=== PATIENT | female | born 1990 | race Caucasian/White ===

== ENCOUNTER 2017-05-18 09:48 | Inpatient (IN) | payer BC, OTHER ==
[2017-05-18] MEDS ORDERED: Phenaphthazine-PH Test Paper VI ONE (10:15)
[2017-05-18 10:34] VITALS: BMI 29.2
[2017-05-18 11:20] LABS: BASO % 0.5 % (0.0-2.0); EOS % 0.2 % (0.0-4.0); HEMATOCRIT 37.1 % (34.0-47.0); LYMPH # 1.5 K/uL (1.0-4.3); LYMPH % 20.8 % (20.0-40.0); MEAN CELL VOLUME 83.2 fl (81.0-99.0); MEAN CORPUSCULAR HEMOGLOBIN 28.3 pg (27.0-31.0); MEAN PLATELET VOLUME 9.3 fl (7.2-11.7); MONO # 0.6 K/uL (0.0-0.8); MONO % 8.7 % (0.0-10.0); NEUT # 5.1 K/uL (1.8-7.0); NEUT % 69.8 % (50.0-75.0); NRBC % 0.2 % (0.0-0.0); RED CELL DISTRIBUTION WIDTH 14.3 % (11.5-14.5); WHITE BLOOD COUNT 7.3 K/uL (4.8-10.8)
[2017-05-18] MEDS ORDERED: Lactated Ringer's 1,000 ML IV SCH (12:00)
[2017-05-18] MEDS: Lactated Ringer's 1,000 ML IV SCH ×2 (12:05→19:04)
--- NOTE | 2017-05-18 12:08 | OBHP ---
Datetime: 05/18/2017 10:30 IP Adm Impression: Term, intrauterine IP Admit Plan: Observation/Evaluation Admit Comment, IP Provider: CHIEF COMPLAINT: CTX HPI: 27 yo at 38.6 wks GA with EDC by us (12/30/2016) /lmp(08/19/2016) ...+: FM, CTX; -: ROM, VB last U/S: 04/26/2017 GBS: negative per patient, received via phone call from office PNC: Dr. 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 Lungs: clear to auscultation bilaterally, no wheezing Abdomen: nontender, gravid CVA: negative Lower extremities: negative for pitting edema SSE/PELVIC EXN: Negative for pooling of fluid; Nitrazine and ferning negative; no vaginal bleed or lesions MONITOR (normal) Variablity: moderate: 6-25 bpm ACC: 15x15 DECC: none FHR: 140 ASSESSMENT: 27 yo IUP at 38.6 wks with h/o in 2016 case d/w Dr. Mary Beth Gray, PGY1 OB Hospitalist Addendum: Pt seen and examined by me. Agree w/ above. 27 yo at 38+6 wks c/ painful ctxns since 2 am, LOF at 7 am, reports a streak of blood, reports movement. On exam , pt appeared in pain during ctxns, Spec: mucus, neg pool, neg nitrazine, neg fern, VE: /-2 w/ BB OW at 10:30 am. Pt desires epidural. Pt admitted to Labor _ Delivery. Will start fluid for epidura l. (ES) Pelvic Type - PN: Adequate Extremities - PN: Normal Abdomen - PN: Normal Back - PN: Normal Breast - PN: Not Done Lungs - PN: Normal Heart - PN: Normal Thyroid - PN: Not Done Neurologic - PN: Normal HEENT - PN: Normal General - PN: Normal FHR - Baseline A Provider: 140 Membranes, Provider: Intact Pool Provider: Negative Nitrazine Provider: Negative Ferning Provider: Negative EGA AdmitDate IP: 38.6 Vital Signs Provider: Reviewed; Within Normal Limits IP Chief Complaint: Uterine contractions; Suspected ruptured membranes NICHD Variability Prov Fetus A: Moderate 6-25bpm NICHD Accel Fetus A IP Provider: 15X15 FHR Category Provider Fetus A: Category I (Annotations: Data stored by CPN on behalf of user) NICHD Decel Fetus A IP Provider: None Dilatation, Provider: 3 Effacement, Provider: 80 Station, Provider: -2 Genitourinary Exam: Normal DTRs - PN: Not Done
--- NOTE | 2017-05-18 12:22 | OBADHP ---
Datetime: 05/18/2017 12:16 Admit Comment, IP Provider: CHIEF COMPLAINT: CTX HPI: 27 yo at 38.6 wks GA with EDC by us (12/30/2016) /lmp(08/19/2016) ...+: FM, CTX; -: ROM, VB last U/S: 04/26/2017 GBS: negative per patient, received via phone call from office PNC: Dr. 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 Lungs: clear to auscultation bilaterally, no wheezing Abdomen: nontender, gravid CVA: negative Lower extremities: negative for pitting edema SSE/PELVIC EXN: Negative for pooling of fluid; Nitrazine and ferning negative; no vaginal bleed or lesions MONITOR (normal) Variablity: moderate: 6-25 bpm ACC: 15x15 DECC: none FHR: 140 ASSESSMENT: 27 yo IUP at 38.6 wks with h/o in 2016 case d/w Dr. Mary Beth Gray, PGY1 OB Hospitalist Addendum: Pt seen and examined by me. Agree w/ above. 27 yo at 38+6 wks c/ painful ctxns since 2 am, LOF at 7 am, reports a streak of blood, reports movement. All oth er systems reviewed and negative. On exam, pt appeared in pain during ctxns, Spec: mucus, neg pool, neg nitrazine, neg fern, VE: 3/80/-2 w/ BBOW at 10:30 am. Pt desires epidural. Pt admitted to Labor _ Delivery. Will start fluid for epidural. (ES) Extremities - PN: Normal Abdomen - PN: Normal Back - PN: Normal Lungs - PN: Normal Heart - PN: Normal Neurologic - PN: Normal General - PN: Normal FHR - Baseline A Provider: 130s Membranes, Provider: Intact Contraction Comments Provider: irregular Vital Signs Provider: Reviewed IP Chief Complaint: Uterine contractions NICHD Variability Prov Fetus A: Moderate 6-25bpm NICHD Accel Fetus A IP Provider: 15X15 FHR Category Provider Fetus A: Category I NICHD Decel Fetus A IP Provider: None Dilatation, Provider: 3 Effacement, Provider: 80 Station, Provider: -2 Genitourinary Exam: Normal EGA AdmitDate IP: 38.6 IP Adm Impression: Term, intrauterine IP Admit Plan: Initiate labor protocol Datetime: 05/18/2017 10:30 Pelvic Type - PN: Adequate Breast - PN: Not Done Thyroid - PN: Not Done HEENT - PN: Normal Pool Provider: Negative Nitrazine Provider: Negative Ferning Provider: Negative DTRs - PN: Not Done
[2017-05-18] MEDS ORDERED: Fentanyl/Bupivacaine HCl 250 ML EPI ONE (12:46)
[2017-05-18 14:07] VITALS: RESP 18
[2017-05-18] MEDS ORDERED: Oxytocin 30 UNITS in Sodium Chloride 0.9% 500 ML IV ONE (15:21)
[2017-05-18] MEDS ORDERED: Oxycodone/Acetaminophen 5/325 mg Tab PO PRN ×3 (20:18→21:05)
--- NOTE | 2017-05-18 20:37 | OBDS ---
DELIVERY PERSONNEL Delivery Doctor: Hernando Clinton MD Instrument Repair Specialist: Yousif Carmen Anesthesiologist: Yash Resident: Christos Izaguirre MATERNAL INFORMATION Delivery Anesthesia: Epidural Medications in Delivery: Pitocin Estimated Blood Loss (ml): 100 Placenta Cultured: No Maternal Complications: None Provider Comments: Pt progressed to complete and pushed to deliver a viable female infant through cl ear fluid w/ terminal meconium at 19:59. Apgars 8 and 9. Wt 3510 gms, 7#11.8. Infant placed on mot her's abdomen. Cord clamped and cut. Cord blood collected. Placenta delivered spontaneously intact w/ a 3vc at 20:03. Second degree tear repaired w/ 3-0v. Rectum intact. Pt and baby tolerated proce dure well. EBL 100mL LABOR SUMMARY EDC: 05/26/2017 00:00 No. Babies in Womb: 1 Attempted: No Labor Anesthesia: Epidural LABOR INFORMATION Reason for Induction: Not Applicable Onset of Labor: 05/18/2017 02:00 Complete Dilatation: 05/18/2017 19:30 Oxytocin: N/A Group B Beta Strep: Done, Result Unknown Antibiotics # of Doses: 0 Antibiotics Time of Last Dose: n/a Steroids Given: None Reason Steroids Not Administered: Not Applicable MEMBRANES Membranes Rupture Method: Artificial Rupture of Membranes: 05/18/2017 14:38 Length of Rupture (hrs): 5.35 Amniotic Fluid Color: Clear Amniotic Fluid Amount: Moderate Amniotic Fluid Odor: Normal STAGES OF LABOR Stage 1 hrs: 17 Stage 1 min: 30 Stage 2 hrs: 0 Stage 2 min: 29 Stage 3 hrs: 0 Stage 3 min: 4 Total Time in Labor hrs: 18 Total Time in Labor min: 3 VAGINAL DELIVERY Episiotomy: None Laceration Extension: Second Degree Laceration Type: Perineal; Vaginal Laceration Repair: Yes Initial Vag Sponge Count: 15 Final Vag Sponge Count: 15 Initial Vag Sharps Count: 2 Final Vag Sharps Count: 2 Sponge Count Correct: Yes Sharps Count Correct: Yes Count Comment: count correct BABY A INFORMATION Infant Delivery Date/Time: 05/18/2017 19:59 Method of Delivery: Vaginal Born in Route : No : N/A Forceps: N/A Vacuum Extraction: N/A Shoulder Dystocia : No SHOULDER DYSTOCIA BABY A Infant Delivery Date/Time: 05/18/2017 19:59 PRESENTATION/POSITION BABY A Presentation: Cephalic Cephalic Presentation: Vertex PLACENTA INFORMATION BABY A Placenta Delivery Time : 05/18/2017 20:03 Placenta Method of Delivery: Spontaneous Placenta Status: Delivered SCORES BABY A Heart Rate 1 min: >100 bpm Resp Effort 1 min: Slow, Irregular Reflex Irritability 1 min: Cough or Sneeze or Pulls Away Muscle Tone 1 min: Active Motion Color 1 min: Body [place], Extremities Blue Resuscitation Effort 1 min: Tactile Stimulation SCORE 1 MIN: 8 Heart Rate 5 min: >100 bpm Resp Effort 5 min: Good Cry Reflex Irritability 5 min: Cough or Sneeze or Pulls Away Muscle Tone 5 min: Active Motion Color 5 min: Body [place], Extremities Blue SCORE 5 MIN: 9 INFORMATION BABY A Gestational Age at Delivery: 38.6 Gestational Status: Term Infant Outcome : Liveborn Condition : Stable Infant Sex: Female IDENTIFICATION/MEDS BABY A ID Band Number: [id number] ID Band Location: Left Leg; Left Arm WEIGHT/LENGTH BABY A Birthweight (gms): 3510 Infant Weight (lb): 7 Infant Weight (oz): 12 CORD INFORMATION BABY A No. Cord Vessels: 3 Nuchal Cord : N/A Nuchal Cord Other: n/a True Knot: n/a Cord pH Baby Arterial: n/a Cord pH Baby Venous: n/a Cord Blood Taken: Yes Banking/Donate Info: n/a Infant Suction: Mouth; Nose ASSESSMENT BABY A Complications: Other Complications Other: terminal mec Physical Findings at Delivery: Within Normal Limits Respirations: Appears Normal Product Sales Representative/ALS Called : No Care By: Dr Narinder Dodd Transferred To: Remains with Mother
[2017-05-18] MEDS ORDERED: Benzocaine/Menthol SPRAY TOP PRN (22:06)
[2017-05-19 07:01] LABS: BASO % 0.3 % (0.0-2.0); EOS % 0.3 % (0.0-4.0); HEMATOCRIT 34.6 % (34.0-47.0); LYMPH # 1.5 K/uL (1.0-4.3); LYMPH % 15.5 % (20.0-40.0); MEAN CELL VOLUME 84.7 fl (81.0-99.0); MEAN CORPUSCULAR HEMOGLOBIN 27.5 pg (27.0-31.0); MEAN CORPUSCULAR HGB CONC 32.4 g/dL (33.0-37.0); MEAN PLATELET VOLUME 8.7 fl (7.2-11.7); MONO # 0.9 K/uL (0.0-0.8); MONO % 9.1 % (0.0-10.0); NEUT % 74.8 % (50.0-75.0); RED CELL DISTRIBUTION WIDTH 14.5 % (11.5-14.5); WHITE BLOOD COUNT 9.4 K/uL (4.8-10.8)
[2017-05-19] MEDS: Oxycodone/Acetaminophen 5/325 mg Tab PO PRN (20:22)
[2017-05-20] MEDS: Oxycodone/Acetaminophen 5/325 mg Tab PO PRN ×2 (00:44→08:08)
--- NOTE | 2017-05-20 02:24 | OBPPN ---
Datetime: 05/19/2017 06:22 PP Pain Prov: Within normal limits PP Nausea Prov: Denies PP Flatus Prov: No PP BM Prov: No PP Heart Prov: Normal PP Lungs Prov: Normal PP Abdomen/Uterus Prov: Normal PP Lochia Prov: Normal PP CVA Tenderness Prov: Normal PP Extremities Prov: Normal PP Progress Prov: Normal PP Impression Prov: Normal progression PP Plan Prov: Continue present management PP Progress Note Prov: PPD #1 27 y/o now seen and examined at bedside this morning. Pt had an uneventful overnight. Rep orts pain is controlled with pain medications. Voiding freely w/ tinged blood noted. Pt reports she d id not pass gas and no BM yet. Ambulating well w/o dizziness. Lochia is similar to menses volume. Pt is /formula feeding the baby w/o difficulty. Denies nausea, vomiting, fever, chills, tom st pain or calf pain. Physical Exam: General: A_O, resting comfortably in bed, NAD HEENT: oral mucosa moist. Lungs: CTA B/L, no wheezing, rhonchi or rales CVS: RRR, S1, S2 ABD: ND, +BS, firm fundus @ umbilical level. Soft, appropriate TTP. EXT: no edema, negative Jessee's sign, Neuro/psych: AAOX3. assessment: 27 y/o now doing well on PDD 1 Plan: OOB w/ caution Regular diet Percocet and Ibuprofen for pain management Encourage and ambulatory TDAP vaccine today Anticipate discharge tomorrow Sultan Banegas, PGY1 OB Hospitalist note...on rounds, pt seen may 19 21:00pm. No complaints. Agree with note MAHNDO Vital Signs Provider PP: Reviewed; Within Normal Limits
--- NOTE | 2017-05-20 11:29 | OBPPN ---
Datetime: 05/20/2017 06:22 PP Pain Prov: Within normal limits PP Nausea Prov: Denies PP Flatus Prov: Yes PP BM Prov: Yes PP Heart Prov: Normal PP Lungs Prov: Normal PP Abdomen/Uterus Prov: Normal PP Lochia Prov: Normal PP CVA Tenderness Prov: Normal PP Extremities Prov: Normal PP Comments Phys Exam Prov: Breast nonengorged PP Impression Prov: Normal progression PP Plan Prov: Discharge PP Progress Note Prov: PPD #2 27 y/o now seen and examined at bedside this morning. Pt had an uneventful overnight. Rep orts pain is controlled with pain medications. Voiding freely w/o blood noted. Pt reports BM last nig ht. Ambulating well w/o dizziness. Lochia is similar to menses volume. Pt is /formula fe eding the baby w/o difficulty. Denies nausea, vomiting, fever, chills, chest pain or calf pain. Physical Exam: General: A_O, resting comfortably in bed, NAD HEENT: oral mucosa moist. Lungs: CTA B/L, no wheezing, rhonchi or rales CVS: RRR, S1, S2 ABD: ND, +BS, firm fundus @ umbilical level. Soft, appropriate TTP. EXT: no edema, negative Jessee's sign, Neuro/psych: AAOX3. assessment: 27 y/o now doing well on PDD 2 Plan: Discharge to home today PNV 1 PO qdaily Ibuprofen 600 mg 1 tab po prn q6 if moderate/severe pain Encourage . Ambulation with caution,nothing per vaginal, no heavy lifting, if excessive bleeding or fever w/o relief from Tylenol go to ED. Follow up at your clinic in 4-6 weeks Sultan Banegas PGY1 OB attending addendum: Patient seen and examined by me. Agree with above assessment and plan. Routine instructions. Breast-feeding and benefits reinforced with patient. IP PP Procedures Comments: TDAP Vital Signs Provider PP: Reviewed; Within Normal Limits
--- NOTE | 2017-05-20 11:32 | OBDCSUM ---
Datetime: 05/20/2017 06:26 Discharged to, Provider: Home Follow up at, Provider: your clinic Disch Instr Activity: Normal activity; May Shower Disch Instr Diet: Regular Discharge Instructions, Provider: Routine instructions given Discharge Diagnosis, Provider: Term Delivered Discharge Time: 05/20/2017 09:33 Follow up in weeks, Provider: in 4-6 weeks Disch Referrals: None Contraception discussed, Prov: Yes Disch Activity Restrictions: No sexual activity; Nothing in vagina - [place], tampons, douche Discharge Comment, Provider: Take vitamin daily Ibuprofen 600 mg 1 tablet every 6 hours with food as needed for moderate/severe pain Please follow up at your clinic in 4-6 weeks. Contraception after Delivery: IUD
[2017-05-20 18:18] VITALS: BP 119/70; PULSE 78; TEMP 97.7; O2SAT 100
== END 2017-05-20 13:00 | disposition home or self-care (01) | DRG 775 ==
LOC: H.EROB2 09:48 → H.EROB 10:12 → H.L&D 10:46 → H.EROB2 10:51 → H.OB/GYN 21:57
PROVIDERS: ADMIT Obstetrics & Gynecology; ATTEND Obstetrics & Gynecology
PROC: 10E0XZZ Delivery of Products of Conception, External Approach (ICD-10-PCS; principal; 2017-05-18)
PROC: 0KQM0ZZ Repair Perineum Muscle, Open Approach (ICD-10-PCS; 2017-05-18)
PROC: 10907ZC Drainage of Amniotic Fluid, Therapeutic from Products of Conception, Via Natural or Artificial Opening (ICD-10-PCS; 2017-05-18)
PROC: 4A1HXCZ Monitoring of Products of Conception, Cardiac Rate, External Approach (ICD-10-PCS; 2017-05-18)
PROC: 3E0234Z Introduction of Serum, Toxoid and Vaccine into Muscle, Percutaneous Approach (ICD-10-PCS; 2017-05-19)
DX: O77.0 Labor and delivery complicated by meconium in amniotic fluid (principal); O70.1 Second degree perineal laceration during delivery; Z37.0 Single live birth; Z3A.38 38 weeks gestation of pregnancy; Z23 Encounter for immunization; Z87.11 Personal history of peptic ulcer disease